=== PATIENT | male | born 1950 | race Two or more races ===

== ENCOUNTER 2021-01-04 11:54 | Outpatient (REF) | payer OTHER, SELFPAY ==
[2021-01-04 13:31] LABS: Erythrocyte Sedimentation Rate 4 MM/HR (0-15)
[2021-01-04 13:57] LABS: Vitamin B12 584 pg/mL (200-900)
[2021-01-05 06:44] LABS: Syphilis Screen Nonreactive (Nonreactive)
[2021-01-06 05:31] LABS: Lyme Abs Screen <0.90 index
[2021-01-06 12:52] LABS: Anti Nuclear Antibody Screen NEGATIVE (NEGATIVE)
== END 2021-01-04 11:55 | disposition home or self-care (01) ==
LOC: HO.LAB 11:54
PROVIDERS: PCP Internal Medicine; Visit Provider Psychiatry & Neurology Neurology
DX: G31.84 Mild cognitive impairment of uncertain or unknown etiology (principal)
CPT/HCPCS: 36415; 82607; 85652; 86038; 86039; 86617; 86618; 86780

== ENCOUNTER 2023-12-05 10:49 | Outpatient (REF) | payer OTHER, SELFPAY ==
[2023-12-05 12:41] LABS: Erythrocyte Sedimentation Rate 1 MM/HR (0-15)
[2023-12-05 12:48] LABS: Folate 13.4 ng/mL (> or = 4.0); Vitamin B12 774 pg/mL (200-900)
[2023-12-07 06:25] LABS: Lyme Abs Screen <0.90 index
[2023-12-12 19:58] LABS: Treponema pallidum Ab FTA ABS Nonreactive (Nonreactive)
== END 2023-12-05 10:50 | disposition home or self-care (01) ==
LOC: HO.LAB 10:49
PROVIDERS: PCP Internal Medicine; Visit Provider Psychiatry & Neurology Neurology
DX: G30.9 Alzheimer's disease, unspecified (principal)
CPT/HCPCS: 36415; 82607; 82746; 85652; 86617; 86618; 86780